=== PATIENT | female | born 1970 | race Caucasian/White ===

== ENCOUNTER → 2024-11-06 | Outpatient (CLI) | payer MEDICAID, SELFPAY ==
--- NOTE | 2024-11-06 08:45 | XR_ITS ---
Examination: Abdomen sonogram, complete Date and time of exam: November 06, 2024 0931 hrs. Indications: Epigastric pain vomiting beginning 2 months ago.. Technique: Multiple real-time grayscale transabdominal sonographic images of the abdomen have been obtained. Findings: Absent gallbladder. Normal common bile duct 0.2 cm Pancreatic head 3.0 cm. Moderate enlargement. Liver 18.3 cm, irregular contour. Normal hepatopedal portal venous flow. Patent IVC. Right kidney 11.0 cm cortex 1.6 cm, mild right hydronephrosis, multiple renal calculi, the largest 9 mm Left kidney 11.6 cm in the cortex (of exam Multiple renal calculi, the largest 5 mm Spleen 13.0 cm Impression: Suspect primary hepatocellular disease. Mild right hydronephrosis Bilateral renal calculi
== END | disposition home or self-care (01) ==
PROVIDERS: PCP Physician Assistant; Referring Provider Specialist; Visit Provider Specialist
DX: R10.13 Epigastric pain (principal); N20.0 Calculus of kidney
CPT/HCPCS: 76700

== ENCOUNTER → 2025-06-04 | Outpatient (CLI) | payer MEDICAID, SELFPAY ==
--- NOTE | 2025-06-04 13:00 | XR_ITS ---
Examination: Bone densitometry Date and time of exam: June 04, 2025, 1324 hours INDICATIONS: Menopause age 50, family history of grandmother osteoporosis Technique: Lumbar spine and hip total bone mineralization values of an calculated. Peak reference and age match control results have been displayed. Findings: Lumbar spine total bone mineralization is 0.890 gm/cm2. This is 1.4 standard deviations below peak reference. This is 0.3 standard deviations below age-matched controls. Hip total bone mineralization is 0.875 gm/cm2 This is 0.6 standard deviations below peak reference. This is 0.1 standard deviations above age-matched controls Impression: There is osteopenia based on lumbar spine measurements. There is normal mineralization based on hip measurements
== END | disposition home or self-care (01) ==
PROVIDERS: PCP Physician Assistant; Referring Provider Internal Medicine Endocrinology, Diabetes & Metabolism; Visit Provider Internal Medicine Endocrinology, Diabetes & Metabolism
DX: M85.89 Other specified disorders of bone density and structure, multiple sites (principal)
CPT/HCPCS: 77080